=== PATIENT | male | born 1995 ===

== ENCOUNTER 2024-03-26 16:04 | Emergency (ER) | payer MEDICAID ==
[~2024-03-26] VITALS: Ht 172.7 cm; Wt 90.7 kg
[2024-03-26 16:50] LABS: BASOPHILS ABSOLUTE AUTO 0.04 K/mm3 (0.00-0.23); BASOPHILS PERCENT AUTO 1 % (0-2); EOSINOPHILS ABSOLUTE AUTO 0.08 K/mm3 (0.00-0.68); EOSINOPHILS PERCENT AUTO 1 % (0-6); Hematocrit 44.3 % (37.0-53.0); Hemoglobin 15.4 g/dL (13.5-17.5); IMMATURE GRAN ABSOLUTE AUTO 0.01 K/mm3 (0.00-0.10); IMMATURE GRAN PERCENT AUTO 0 % (0-1); LYMPHOCYTES ABSOLUTE AUTO 2.15 K/mm3 (0.84-5.20); LYMPHOCYTES PERCENT AUTO 24 % (21-46); MONOCYTES ABSOLUTE AUTO 0.77 K/mm3 (0.16-1.47); MONOCYTES PERCENT AUTO 9 % (4-13); Mean Corpuscular HGB 31.2 pg (26.0-34.0); Mean Corpuscular HGB Conc 34.8 g/dL (31.5-36.5); Mean Corpuscular Volume 90 fL (80-100); Mean Platelet Volume 10.3 fL (9.1-12.4); NEUTROPHILS ABSOLUTE AUTO 5.78 K/mm3 (1.96-9.15); NEUTROPHILS PERCENT AUTO 66 % (41-73); Platelet Count 228 K/mm3 (150-400); RDW Coefficient Variation 12.6 % (11.7-14.2); RDW Standard Deviation 41.3 fL (35.1-46.3); Red Blood Cell Count 4.94 M/mm3 (4.30-5.90); White Blood Cell Count 8.83 K/mm3 (4.00-11.30)
[2024-03-26 17:08] LABS: Ethanol (Alcohol), Blood, Med <3 mg/dL; Salicylate <1.7 mg/dL (2.8-20.0)
[2024-03-26 17:09] LABS: Acetaminophen, Random <2.0 ug/mL (10.0-30.0); Alanine Aminotransfer (ALT/SGP 67 U/L (12-78); Albumin, Blood 4.3 g/dL (3.4-5.0); Albumin/Globulin Ratio 1.2 (0.8-1.8); Alk Phos 67 U/L (50-136); Anion Gap 11 mmol/L (3-11); Aspartate Aminotrans (AST/SGOT 31 U/L (12-37); Bilirubin, Total 0.5 mg/dL (0.1-1.0); Blood Urea Nitrogen 19 mg/dL (8-24); Bun/Creatinine Ratio 16.4 (12.0-20.0); CO2, Blood 23 mmol/L (21-32); Calcium, Blood 9.4 mg/dL (8.5-10.1); Chloride, Blood 108 mmol/L (98-108); Creatinine, Blood 1.16 mg/dL (0.60-1.20); Globulin, Blood 3.5 g/dL (2.2-4.0); Glomerular Filtration Rate 87 (60-); Glucose, Blood 104 mg/dL (70-99); Potassium, Blood 3.6 mmol/L (3.5-5.5); Sodium, Blood 138 mmol/L (136-145); Total Protein, Blood 7.8 g/dL (6.4-8.2)
[2024-03-26 18:14] LABS: Source, Urine Clean Catch
[2024-03-26 18:23] LABS: Appearance, Urine Clear (Clear); Bilirubin, Urine Neg (Neg); Blood, Urine Neg (Neg); Color, Urine Yellow (P-Yellow); Glucose Qualitative, Urine Neg (Neg); Ketones, Urine 1+ (Neg); Leukocyte Esterase, Urine Neg (Neg); Nitrite, Urine Neg (Neg); Protein, Urine 2+ (Neg); Urobilinogen, Urine NORM (Normal)
[2024-03-26 18:31] LABS: Amorphous Light (0-Heavy); Bacteria Rare /hpf; Mucus Light (0-Heavy); Red Blood Cells, Urine Not Seen /hpf (0-2); Squamous Epithelial Cells Not Seen /hpf (Few); White Blood Cells, Urine 0-2 /hpf (0-5)
[2024-03-26 18:33] LABS: U Amphetamine Screen Not Detected; U Barbituate Screen Not Detected; U Benzodiazapine Screen Not Detected; U Buprenorphine Screen Not Detected; U Cannabinoids Screen Not Detected; U Cocaine Screen Not Detected; U Methadone Screen Not Detected; U Methamphetamine Screen Not Detected; U Opiates Screen Not Detected; U Oxycodone Screen Not Detected; U Phencyclidine Screen Not Detected
== END 2024-03-26 21:27 | disposition other institution (70) ==
LOC: ER 16:04 → EDBEDREQ 19:22 → ER 21:27
PROVIDERS: Physician Assistant
DX: R45.851 Suicidal ideations (principal)
CPT/HCPCS: 80053; 80320; 81001; 85025; 93005; 93010; 99285-25; G0480

== ENCOUNTER 2024-03-26 18:27 | Inpatient (IN) | payer SELFPAY ==
[2024-03-26] MEDS ORDERED: FLU VACC TS2024-25(6MOS UP)/PF 45 MCG/0.5 ML SYRINGE IM ONE (19:20)
[2024-03-26] MEDS ORDERED: Haloperidol 5 MG Tab PO PRN ×2 (19:20→19:25)
[2024-03-26] MEDS ORDERED: Mirtazapine 15 MG Tab PO PRN (19:25)
[2024-03-26] MEDS ORDERED: Ibuprofen 600 MG Tab PO PRN (19:25)
[2024-03-26] MEDS ORDERED: LORazepam 2 MG Tab PO PRN (19:25)
[2024-03-26] MEDS ORDERED: LORazepam 2 MG/ML 1ML Injection IM PRN (19:25)
[2024-03-26] MEDS ORDERED: Aluminum Hydroxide 320MG/5ML 473 ML PO PRN (19:25)
--- NOTE | 2024-03-26 21:31 | NUR ---
PATIENT ARRIVED ON U AT 2128, ACCOMPANIED BY MHA AND SECURITY.
--- NOTE | 2024-03-26 21:52 | NUR ---
STEPHANIE CHECKED IN AT 3115 AND WAS PRESENT FOR BELONGING CHECK IN. PATIENT PROVIDED A PHONE NUMBER FOR HIS SISTER (NO NAME PROVIDED ONLY A PHONE NUMBER) OF [phone]. PATIENT APPROVED WASHING ALL OF HIS CLOTHING AND CHARGING BOTH OF HIS CELL PHONES PRIOR TO LOCKING UP THE VALUABLES IN SAFE # LOCK UP 1 AND PRIOR TO STOWING HIS BELONGINGS.
--- NOTE | 2024-03-27 03:38 | NUR ---
PATIENT ARRIVED ON UNIT FROM ED AT 2128. HE WAS PLEASANT AND COOPERATIVE THROUGHOUT THE ADMISSION PROCESS, IF A BIT SHY. HE WAS A GOOD HISTORIAN AND THOROUGH IN HIS ANSWERS. HE REQUESTED AND WAS GIVEN A SNACK AND DRINK, WHICH HE CONSUMED. HE WAS SHOWN HIS ROOM AND TOOK HIS EVENING MEDICATION. HE THEN WENT TO BED WHERE HE WAS NOTED TO BE RESTING QUIETLY WITH EYES CLOSED AND RESPIRATIONS CONFIRMED. HE HAD NO S/SX SUICIDAL IDEATION NOTED THIS SHIFT. HE STATED THAT HE HAS THE FEELINGS, BUT DOES NOT WANT TO FOLLOW THROUGH WITH THEM AT THIS TIME. HE STATES THAT HE WOULD LIKE TO LEARN COPING SKILLS WHILE HERE.
[2024-03-27 08:55] VITALS: BP 135/91
--- NOTE | 2024-03-27 12:07 | NUR ---
PT REQUESTING INFORMATION R/T DISCHARGE AND VISITOR GUIDELINES PCP DR ABBOTT INFORMED PT STAY TILL FRIDAY AND NO VISITORS UNDER 18 Y/O. PT VERBALIZES UNDERSTANDING. PT REQUESTING TO USE PHONE TO CALL SISTER
--- NOTE | 2024-03-27 18:25 | NUR ---
SHIFT SUMMARY PT COOPERATIVE AND PLEASANT. QUESTIONING DISCHARGE PLANNING AND VISIBLY DISAPPOINTED WHEN INFORMED NO VISITORS UNDER 18 ON UNIT. PT HOPEFUL FOR CHILDREN TO VISIT. PROVIDER DISCUSSED W/ PT PLAN OF STAY TO UNSURE PT SAFETY AND ENGAGE IN GROUPS TO LEARN COPING SKILLS, PT VERBALLY AGREEABLE. WILL CONTINUE TO MONITOR PER UNIT PROTOCOLS.
[2024-03-27] MEDS ORDERED: Mirtazapine 15 MG Tab PO SCH (21:00)
--- NOTE | 2024-03-28 03:20 | NUR ---
PATIENT WAS AWAKE IN [place] AT THE BEGINNING OF THE SHIFT. HE STATED THAT HE HAS BEEN BORED BUT "I'LL TRY THE NINTENDO SWITCH TOMORROW". IT IS NOTED THAT HE HAS NO PEERS NEAR HIS AGE AT THIS TIME. HE WAS PLEASANT AND COOPERATIVE WITH CARES, INCLUDING EVENING MEDICATION. HE WENT TO BED EARLY AND WAS NOTED TO BE RESTING QUIETLY IN BED WITH EYES CLOSED AND RESPIRATIONS CONFIRMED. HE HAD NO S/SX SUICIDAL IDEATION THIS SHIFT.
[2024-03-28 08:07] VITALS: BP 149/77
[2024-03-28] MEDS ORDERED: Nicotine 21 MG PATCH TOP SCH (10:42)
--- NOTE | 2024-03-28 11:05 | NUR ---
AM ASSESSMENT DISCUSSED W/ PT CONCERNS REPORTED ON CHECK IN COMMUNITY MEETING. PT REPORTED NEEDS AND CONCERNS. WHILE TALKING W/ PT, HE INFORMED DIFFICULTY AT HOME W/ CHILDRENS MOTHER. PT REPORTS LIFELONG FEELINGS FOR CHILDRENS MOTHER BUT MINIMAL CONTACT FOR PAST 5+ YEARS. CURRENTLY FEELS HEARTBREAK, DISSAPPOINTMENT, AND LOSS OF MISSING CHILDREN GROWING UP. EDUCATED PT ON SELF CARE, MENTAL HEALTH IMPORTANCE FOR SELF. V/U BY PT PT DENIES SI CURRENTLY AND REPORTS NEED FOR SELF COUNSELING, SUPPORT GROUPS. PT REPORTS AN UNDERSTANDING OF WEEKEND LIMITED STAFFING ALTHOUGH FEELS FRUSTRATED WITH LACK OF COUNSELING SUPPORT. PT VERY INTERESTED IN LEARNING COPING SKILLS AND CURRENT DIAGNOSIS. EDUCATION PROVIDED R/T DEPRESSION, ANXIETY, COPING SKILLS, AND RELAXATION TECHNIQUES. WILL CONTINUE TO MONITOR PER UNIT PROTOCOLS AND PROVIDE SUPPORT NECESSARY.
--- NOTE | 2024-03-28 16:36 | NUR ---
PT REQUESTED SWITCH/ VR PT CURRENTLY PLAYING VR HEADSET FOR 45 MINUTES IN SENSORY ROOM
--- NOTE | 2024-03-28 17:51 | NUR ---
SHIFT SUMMARY PT COOPERATIVE AND PLEASANT. DENIES SI AT THIS TIME. PT CONTINUES TO REPORT BORDOME AND DESIRE TO LEARN MORE ABOUT DIAGNOSIS AND DISCHARGE. PT ACTIVELY PARTICIPATING IN TV ROOM W/ PEERS AND SPORTS WATCHING. PT ALSO SPENT SOME TIME PLAYING SWITCH AND VR. PT REPORTS LIKING THE VR AND NEED FOR PURCHASING ONE FOR HIS KIDS. PT LOOKING FORWARD TO MEETING WITH SW AND OT TOMORROW. WILL CONTINUE TO MONITOR PER UNIT PROTOCOLS AND PROVIDE SUPPORT.
[2024-03-28 20:32] VITALS: BP 128/109
--- NOTE | 2024-03-29 05:59 | NUR ---
Patient spent most of the evening using the VR headset and Switch. He was cooperative with assessment. He took his medication without issue. He denied new concerns at this time. He denied symptoms at this time. He is able to make his needs known. Plan of care ongoing. He appeared to be sleeping in his bed for 7.5 hours.
[2024-03-29 08:08] VITALS: BP 133/90
[2024-03-29] MEDS ORDERED: MIRT15 PO (13:30)
--- NOTE | 2024-03-29 13:50 | NUR ---
Pt euthymic with congruent affect. Pt denies SI, HI, AVH. Pt is being d/c'd today. This engineering technical writer sat down with pt and provided education on d/c, follow-up appointments, and new medications; pt acknowledged understanding. MILO Nelson returned pt's belongings and pt changed out of hospital pajamas and into street clothes; no discrepencies noted on belongings list. Pt escorted off the unit at 1400.
== END 2024-03-29 13:59 | disposition home or self-care (01) | DRG 885 ==
LOC: BHU 18:27
PROVIDERS: ADMIT Psychiatry & Neurology Psychiatry
DX: F32.3 Major depressive disorder, single episode, severe with psychotic features (principal); Z59.00 Homelessness unspecified; R45.851 Suicidal ideations; F19.10 Other psychoactive substance abuse, uncomplicated; Z79.899 Other long term (current) drug therapy
CPT/HCPCS: A9270